=== PATIENT | male | born 1940 | race Caucasian/White ===

== ENCOUNTER → 2018-10-31 | Outpatient (CLI) | payer MEDICARE ==
[~2018-10-31] MED LIST: AMLO5TAB4 PO; ASPI-482 PO; BENA40TA15 PO; BUDE10.2 IH; DIPH25CA58 PO; HYDR-2761 PO; METO1TAB11 PO; OMEP40CA2 PO; PRAV40TA PO; TICA90TA PO; TRIA1CAP PO
--- NOTE | 2018-10-31 11:11 | KCIC ---
CHEST PA LATERAL History: Shortness of breath. Comparison: Chest CT January 10, 2014 Findings: No consolidation or pleural effusion. Normal heart size. Calcified right inferior granuloma, unchanged. Minimal left basilar subsegmental atelectasis. Impression: 1. No acute cardiopulmonary process. Electronically signed by: Jim Braga DO (10/31/2018 11:08 AM) [id number]
== END | disposition home or self-care (01) ==
LOC: KCIC 09:14
PROVIDERS: ATTEND Internal Medicine Critical Care Medicine
DX: J98.11 Atelectasis (principal); J84.10 Pulmonary fibrosis, unspecified
CPT/HCPCS: 71046